=== PATIENT | female | born 1965 | race Caucasian/White ===

== ENCOUNTER 2017-06-20 07:58 | Emergency (ER) | payer MEDICARE, MEDICAID ==
[~2017-06-20] VITALS: Ht 157.5 cm; Wt 72.6 kg
[~2017-06-20 07:58] MED LIST: CLON0.5T3; DIPH50CA; IBUP800T24; IPRAAER6; OLAN10TA40; TOPI50TA53; ZIPR60CA7; ZOLP5TAB5
[2017-06-20 08:11] VITALS: BP 155/103
[2017-06-20] MEDS ORDERED: LORazepam 0.5 MG TAB PO ONE (08:30)
== END 2017-06-20 08:51 | disposition home or self-care (01) ==
LOC: ER 07:58 → EDBD 07:58 → ER 08:51
DX: F41.9 Anxiety disorder, unspecified (principal); J45.909 Unspecified asthma, uncomplicated; J20.9 Acute bronchitis, unspecified; F20.9 Schizophrenia, unspecified

== ENCOUNTER 2018-12-14 11:36 | Emergency (ER) | payer OTHER, MEDICAID ==
[~2018-12-14] VITALS: Ht 162.6 cm; Wt 86.2 kg
[~2018-12-14 11:36] MED LIST changes: +CLON0.5T10; -CLON0.5T3
[2018-12-14 11:44] VITALS: BP 124/69
== END 2018-12-14 14:36 | disposition left against medical advice (07) ==
LOC: EDBD 11:36 → ER 11:36
DX: F29 Unspecified psychosis not due to a substance or known physiological condition (principal); Z53.21 Procedure and treatment not carried out due to patient leaving prior to being seen by health care provider

== ENCOUNTER 2022-01-06 09:51 | Emergency (ER) | payer OTHER, MEDICAID ==
[~2022-01-06] VITALS: Ht 157.5 cm; Wt 90.7 kg
[~2022-01-06 09:51] MED LIST changes: -DIPH50CA; +DIPH50CA19; -IBUP800T24; +IBUP800T27
[2022-01-06 09:54] VITALS: BP 134/77
== END 2022-01-06 10:21 | disposition left against medical advice (07) ==
LOC: ER 09:51
DX: R05.9 Cough, unspecified (principal); Z53.21 Procedure and treatment not carried out due to patient leaving prior to being seen by health care provider

== ENCOUNTER 2023-06-09 08:20 | Emergency (ER) | payer OTHER, MEDICAID ==
[~2023-06-09] VITALS: Ht 157.5 cm; Wt 93.0 kg
[~2023-06-09 08:20] MED LIST changes: -CLON0.5T10; +CLON0.5T4; -DIPH50CA19; +DIPH50CA30; +IBUP-1456; -IBUP800T27
[2023-06-09 08:50] VITALS: BP 108/82; TEMP 97.5
[2023-06-09 08:55] VITALS: PULSE 81; RESP 16; O2SAT 98
[2023-06-09] MEDS ORDERED: IBUP-1456 PO ×2 (09:02→09:15)
[2023-06-09] MEDS ORDERED: AUG875T PO ×2 (09:02→09:15)
== END 2023-06-09 09:21 | disposition home or self-care (01) ==
LOC: ER 08:20
DX: H66.92 Otitis media, unspecified, left ear (principal); J45.909 Unspecified asthma, uncomplicated; Z90.89 Acquired absence of other organs; Z79.1 Long term (current) use of non-steroidal anti-inflammatories (NSAID); Z79.2 Long term (current) use of antibiotics; Z79.899 Other long term (current) drug therapy

== ENCOUNTER 2023-06-14 06:20 | Emergency (ER) | payer OTHER, MEDICAID ==
[~2023-06-14] VITALS: Ht 157.5 cm; Wt 91.0 kg
[~2023-06-14 06:20] MED LIST changes: +AUG875T PO; +IBUP-1456 PO
[2023-06-14 07:41] VITALS: BP 136/83; PULSE 88; RESP 20; TEMP 98.1; O2SAT 97
== END 2023-06-14 07:41 | disposition home or self-care (01) ==
LOC: ER 06:20
DX: F20.9 Schizophrenia, unspecified (principal); F41.9 Anxiety disorder, unspecified; F32.9 Major depressive disorder, single episode, unspecified; J45.909 Unspecified asthma, uncomplicated; Z90.89 Acquired absence of other organs; Z79.1 Long term (current) use of non-steroidal anti-inflammatories (NSAID); Z79.899 Other long term (current) drug therapy

== ENCOUNTER 2024-02-10 12:22 | Emergency (ER) | payer OTHER, MEDICAID ==
[~2024-02-10] VITALS: Ht 157.5 cm; Wt 86.6 kg
[2024-02-10 12:51] VITALS: BP 113/94; RESP 18; O2SAT 96
[2024-02-10 12:53] VITALS: PULSE 92
== END 2024-02-10 14:30 | disposition left against medical advice (07) ==
LOC: ER 12:22
DX: K52.9 Noninfective gastroenteritis and colitis, unspecified (principal); J45.909 Unspecified asthma, uncomplicated; F41.9 Anxiety disorder, unspecified; F32.A Depression, unspecified; F20.9 Schizophrenia, unspecified; R56.9 Unspecified convulsions; Z90.89 Acquired absence of other organs; Z59.00 Homelessness unspecified; Z79.899 Other long term (current) drug therapy
CPT/HCPCS: 93005

== ENCOUNTER 2024-03-26 05:57 | Emergency (ER) | payer MEDICARE, MEDICAID ==
[~2024-03-26] VITALS: Ht 157.5 cm; Wt 95.0 kg
[2024-03-26 07:37] LABS: Basophils # (auto) 0.1 10 ^3/uL (0-0.2); Basophils % (auto) 0.7 % (0.0-2.0); Eosinophils # (auto) 0.2 10 ^3/uL (0-0.8); Eosinophils % (auto) 2.6 % (0.0-7.0); Hematocrit 40.3 % (36.0-46.0); Hemoglobin 13.8 g/dL (12.2-16.2); Lymphocytes # (auto) 3.4 10 ^3/uL (0.4-5.4); Mean Corpuscular Hemoglobin 32.3 pg (28.0-32.0); Mean Corpuscular Hgb Conc. 34.3 g/dL (32.0-36.0); Mean Corpuscular Volume 94.2 fL (80.0-100.0); Monocytes # (auto) 0.4 10 ^3/uL (0-1.3); Monocytes % (auto) 4.6 % (0.0-12.0); Neutrophils # (auto) 3.7 10 ^3/uL (1.6-8.6); Neutrophils % (auto) 48.1 % (37.0-80.0); Nucleated Red Blood Cells % 0.1 %; Red Blood Cells 4.28 10^6/uL (4.0-5.20); Red Cell Distribution Width 13.8 % (11.8-14.3); White Blood Cell 7.8 10^3/uL (4.4-10.8)
[2024-03-26 07:48] LABS: Alanine Aminotransferase 51 U/L (7-40); Albumin 4.7 g/dL (3.2-4.8); Alkaline Phosphatase 105 U/L (46-116); Anion Gap 12 (5-15); Aspartate Aminotransferase 18 U/L (13-40); BUN/Creatinine Ratio 17.6 (10.0-20.0); Bilirubin, Total 0.2 mg/dL (0.2-1.0); Blood Urea Nitrogen 16 mg/dL (9-23); Calcium 9.7 mg/dL (8.7-10.4); Carbon Dioxide 19 mmol/L (20-30); Chloride 106 mmol/L (98-107); Glucose 106 mg/dL (74-106); Potassium 3.9 mmol/L (3.5-5.1); Sodium 137 mmol/L (136-145); Total Protein 7.1 g/dL (5.7-8.2)
[2024-03-26 08:31] VITALS: BP 124/85; PULSE 88; RESP 16; TEMP 98.2; O2SAT 98
[2024-03-26] MEDS ORDERED: DIVA-91 PO (08:49)
[2024-03-26 08:50] VITALS: PULSE 79
== END 2024-03-26 09:31 | disposition home or self-care (01) ==
LOC: EDBD 05:57 → ER 05:57
DX: F25.9 Schizoaffective disorder, unspecified (principal); F32.9 Major depressive disorder, single episode, unspecified; F41.9 Anxiety disorder, unspecified; J45.909 Unspecified asthma, uncomplicated; R21 Rash and other nonspecific skin eruption; Z79.899 Other long term (current) drug therapy
CPT/HCPCS: 36415; 80053; 84484; 85025; 93005

== ENCOUNTER 2024-07-06 08:22 | Inpatient (IN) | payer MEDICARE, MEDICAID ==
[~2024-07-06] VITALS: Ht 157.5 cm; Wt 89.7 kg
[~2024-07-06 08:22] MED LIST changes: +DIVA-91 PO
[2024-07-06 08:52] LABS: Urine Bacteria None Seen /hpf (None Seen)
[2024-07-06] MEDS: methylPREDNISolone SOD SUCC 125 MG/2 ML VL IV ONE (08:57)
[2024-07-06] MEDS: ALBUTEROL SULF 2.5 MG/0.5ML(0.5%) NEB SOLN NEB ONE (08:58)
[2024-07-06] MEDS: IPRATROPIUM BROM 0.5 MG/2.5ML INH SOL NEB ONE (08:58)
[2024-07-06 09:18] LABS: Basophils # (auto) 0.1 10 ^3/uL (0-0.2); Basophils % (auto) 0.7 % (0.0-2.0); Eosinophils # (auto) 0.2 10 ^3/uL (0-0.8); Eosinophils % (auto) 2.9 % (0.0-7.0); Hematocrit 40.7 % (36.0-46.0); Hemoglobin 13.4 g/dL (12.2-16.2); Lymphocytes # (auto) 2.6 10 ^3/uL (0.4-5.4); Lymphocytes % (auto) 33.6 % (10.0-50.0); Mean Corpuscular Hemoglobin 31.7 pg (28.0-32.0); Mean Corpuscular Hgb Conc. 32.9 g/dL (32.0-36.0); Mean Corpuscular Volume 96.2 fL (80.0-100.0); Monocytes # (auto) 0.3 10 ^3/uL (0-1.3); Monocytes % (auto) 4.1 % (0.0-12.0); Neutrophils # (auto) 4.6 10 ^3/uL (1.6-8.6); Neutrophils % (auto) 58.7 % (37.0-80.0); Nucleated Red Blood Cells % 0.1 %; Platelet Count (auto) 282 10^3/uL (140-450); Red Blood Cells 4.23 10^6/uL (4.0-5.20); Red Cell Distribution Width 13.5 % (11.8-14.3); White Blood Cell 7.8 10^3/uL (4.4-10.8)
[2024-07-06 09:26] LABS: Urine Blood 3+ /uL (Negative); Urine Clarity Turbid (Clear); Urine Mucus FEW (None Seen); Urine Protein, UAD 1+ (Negative); Urine Specific Gravity 1.024 (1.001-1.035); Urine Urobilinogen Normal (Negative); Urine WBC 104 /hpf (0 - 5); Urine pH 6.5 (5.0-9.0)
[2024-07-06 09:27] LABS: Urine Color Yellow (Yellow)
[2024-07-06 09:31] LABS: Chloride 108 mmol/L (98-107); Potassium 3.4 mmol/L (3.5-5.1); Sodium 140 mmol/L (136-145)
[2024-07-06 09:32] LABS: Anion Gap 8 (5-15); Carbon Dioxide 24 mmol/L (20-31)
[2024-07-06 09:33] LABS: Calcium 9.7 mg/dL (8.7-10.4)
[2024-07-06 09:37] LABS: BUN/Creatinine Ratio 15.3 (10.0-20.0); Blood Urea Nitrogen 13 mg/dL (9-23); Glucose 93 mg/dL (74-106)
[2024-07-06] MEDS: cefTRIAXone 1GM/50ML D5W 50 ML IV ONE (13:24)
[2024-07-06] MEDS: HYDROcodone-ACET 5/325MG TAB PO ONE (13:33)
[2024-07-06] MEDS ORDERED: HYDROmorphone HCL 2 MG/ML VL/or syr IV PRN (15:00)
[2024-07-06] MEDS ORDERED: ACETAMINOPHEN 325 MG TAB PO PRN (15:00)
[2024-07-06] MEDS ORDERED: DOCUSATE SOD 100 MG CAP PO PRN (15:00)
[2024-07-06] MEDS ORDERED: HYDROcodone-ACET 5/325MG TAB PO PRN (15:00)
[2024-07-06] MEDS ORDERED: ONDANSETRON HCL 4 MG/2 ML VIAL IV PRN (15:00)
[2024-07-06 17:41] VITALS: BP 127/89; PULSE 69; RESP 16; TEMP 97.8; O2SAT 98
[2024-07-06 17:55] VITALS: BP 127/89; PULSE 69; RESP 16; TEMP 91; O2SAT 98
[2024-07-06 20:00] VITALS: PULSE 80; RESP 18; O2SAT 95
[2024-07-06 21:00] VITALS: BP 135/85; PULSE 80; RESP 19; TEMP 97.9; O2SAT 95
[2024-07-06] MEDS: SODIUM CHLOR 0.9% PF (SALINE LOCK) 10ML VIAL/SYR IV SCH (21:48)
[2024-07-07 01:00] VITALS: BP 114/73; PULSE 87; RESP 19; TEMP 97.6; O2SAT 97
[2024-07-07 05:00] VITALS: BP 102/66; PULSE 74; RESP 19; TEMP 97.6; O2SAT 96
[2024-07-07 08:43] VITALS: BP 106/76; PULSE 74; RESP 19; TEMP 98; O2SAT 97
[2024-07-07 09:52] LABS: Basophils # (auto) 0 10 ^3/uL (0-0.2); Basophils % (auto) 0.8 % (0.0-2.0); Eosinophils # (auto) 0.3 10 ^3/uL (0-0.8); Eosinophils % (auto) 4.5 % (0.0-7.0); Hematocrit 39.3 % (36.0-46.0); Hemoglobin 12.9 g/dL (12.2-16.2); Lymphocytes # (auto) 2.5 10 ^3/uL (0.4-5.4); Lymphocytes % (auto) 43.4 % (10.0-50.0); Mean Corpuscular Hemoglobin 31.7 pg (28.0-32.0); Mean Corpuscular Hgb Conc. 32.9 g/dL (32.0-36.0); Mean Corpuscular Volume 96.4 fL (80.0-100.0); Monocytes # (auto) 0.3 10 ^3/uL (0-1.3); Monocytes % (auto) 4.8 % (0.0-12.0); Neutrophils # (auto) 2.7 10 ^3/uL (1.6-8.6); Neutrophils % (auto) 46.5 % (37.0-80.0); Nucleated Red Blood Cells % 0.1 %; Platelet Count (auto) 252 10^3/uL (140-450); Red Blood Cells 4.08 10^6/uL (4.0-5.20); Red Cell Distribution Width 13.5 % (11.8-14.3); White Blood Cell 5.7 10^3/uL (4.4-10.8)
[2024-07-07 09:56] LABS: Alanine Aminotransferase 10 U/L (7-40); Albumin 4.1 g/dL (3.2-4.8); Alkaline Phosphatase 84 U/L (46-116); Anion Gap 8 (5-15); Aspartate Aminotransferase < 8 U/L (13-40); BUN/Creatinine Ratio 18.1 (10.0-20.0); Bilirubin, Total 0.2 mg/dL (0.2-1.0); Blood Urea Nitrogen 15 mg/dL (9-23); Calcium 9.5 mg/dL (8.7-10.4); Carbon Dioxide 24 mmol/L (20-31); Chloride 110 mmol/L (98-107); Glucose 87 mg/dL (74-106); Potassium 4.3 mmol/L (3.5-5.1); Sodium 142 mmol/L (136-145); Total Protein 6.5 g/dL (5.7-8.2)
[2024-07-07] MEDS ORDERED: cefTRIAXone 1GM/50ML D5W 50 ML IV SCH (10:00)
[2024-07-07] MEDS: ENOXAPARIN SOD 40 MG/0.4 ML SYRINGE SC SCH (10:14)
[2024-07-07] MEDS: cefTRIAXone 1GM/50ML D5W 50 ML IV SCH (10:15)
[2024-07-07 13:00] VITALS: BP 110/74; PULSE 71; RESP 20; TEMP 97.9; O2SAT 100
[2024-07-07 17:00] VITALS: BP 125/77; PULSE 69; RESP 17; TEMP 97.9; O2SAT 97
[2024-07-07 21:00] VITALS: BP_SYST 106; BP_SYST 110; BP_DIAS 67; BP_DIAS 71; PULSE 53; PULSE 72; RESP 18; RESP 20; TEMP 97.5; TEMP 97.8; O2SAT 96; O2SAT 98
[2024-07-08 01:00] VITALS: BP 120/75; PULSE 74; RESP 20; TEMP 97.7; O2SAT 96
[2024-07-08 05:00] VITALS: BP 111/81; PULSE 74; RESP 20; TEMP 97.8; O2SAT 96
[2024-07-08 05:55] LABS: Hematocrit 38.5 % (36.0-46.0); Mean Corpuscular Hemoglobin 32.6 pg (28.0-32.0); Mean Corpuscular Hgb Conc. 33.9 g/dL (32.0-36.0); Mean Corpuscular Volume 96.4 fL (80.0-100.0); Platelet Count (auto) 246 10^3/uL (140-450); Red Blood Cells 3.99 10^6/uL (4.0-5.20); Red Cell Distribution Width 13.1 % (11.8-14.3); White Blood Cell 5.6 10^3/uL (4.4-10.8)
[2024-07-08 06:05] LABS: Band Neutrophils % (manual) 0; Basophils % (manual) 0 (0.0-2.0); Blast Cells 0; Metamyelocytes % 0; Myelocytes % 0; Promyelocytes % 0; Reactive Lymphocytes 0
[2024-07-08 06:08] LABS: Alanine Aminotransferase 11 U/L (7-40); Alkaline Phosphatase 80 U/L (46-116); Anion Gap 8 (5-15); Aspartate Aminotransferase < 8 U/L (13-40); BUN/Creatinine Ratio 18.5 (10.0-20.0); Bilirubin, Total 0.3 mg/dL (0.2-1.0); Blood Urea Nitrogen 15 mg/dL (9-23); Calcium 9.4 mg/dL (8.7-10.4); Carbon Dioxide 22 mmol/L (20-31); Chloride 112 mmol/L (98-107); Glucose 95 mg/dL (74-106); Sodium 142 mmol/L (136-145); Total Protein 6.3 g/dL (5.7-8.2)
[2024-07-08 08:12] LABS: Eosinophils % (manual) 5 (0-7); Lymphocytes % (manual) 57 (10.0-50.0); Monocytes % (manual) 10 (0-12); Platelet Estimate Adequate
[2024-07-08 09:00] VITALS: BP 130/83; PULSE 86; RESP 17; TEMP 97.7; O2SAT 98
[2024-07-08] MEDS ORDERED: BUPR-346 PO (09:29)
[2024-07-08] MEDS ORDERED: TOPI1CAP23 OR (09:29)
[2024-07-08] MEDS ORDERED: HYDR-3682 PO (09:30)
[2024-07-08] MEDS ORDERED: CARB200C8 PO (09:31)
[2024-07-08] MEDS ORDERED: DIVA250T12 PO (09:33)
[2024-07-08] MEDS ORDERED: QUET100T47 PO (09:34)
[2024-07-08 13:00] VITALS: BP 106/76; PULSE 79; RESP 15; TEMP 98; O2SAT 96
[2024-07-08] MEDS ORDERED: CIPR-173 PO (13:48)
[2024-07-08 16:37] VITALS: TEMP 36.7
== END 2024-07-08 17:10 | disposition home or self-care (01) | DRG 690 ==
LOC: ER 08:22 → OVERFLOW 15:00 → WEST WING 15:05
PROVIDERS: ADMIT Student in an Organized Health Care Education/Training Program; ATTEND Student in an Organized Health Care Education/Training Program
DX: N30.01 Acute cystitis with hematuria (principal); Z59.00 Homelessness unspecified; F20.9 Schizophrenia, unspecified; J45.909 Unspecified asthma, uncomplicated; Z79.899 Other long term (current) drug therapy
CPT/HCPCS: 36415; 80048; 80053; 81001; 85007; 85025; 85027; 87040; 87086; 87088; 87186; G0378

== ENCOUNTER 2024-09-30 11:09 | Emergency (ER) | payer MEDICARE, MEDICAID ==
[~2024-09-30] VITALS: Ht 157.5 cm; Wt 90.9 kg
[~2024-09-30 11:09] MED LIST changes: -AUG875T PO; +BUPR-346 PO; +CARB200C8 PO; +CIPR-173 PO; +DIVA250T12 PO; +HYDR-3682 PO; +QUET100T47 PO; +TOPI1CAP23 OR; -TOPI50TA53
--- NOTE | 2024-09-30 11:40 | ED.PDOC ---
Psychiatric HPI Comments 59y F who presents to the ED via EMS for chief complaint of anxiety. Pt states she was shoping at [employer] and states while in line, she thinks she heard a switch blade and turned around. Pt states she turned around and did not see anybody but states she suddenly felt weak and noticed pain to the R foot and heel and called EMS. Pt now in the ED, states she does have history of paranoid schizophrenia and states it might of her own paranoia. Pt otherwise denies any suicidal or homidical ideations. Pt otherwise denies any other symptoms at this time. 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 FARM MANAGER History Family History Family History: No family hx of DM, No family hx of Heart christiano, No family hx of HTN Social History Smoker: Non-Smoker Alcohol: Denies ETOH Use Drugs: Denies Drug Use Lives In: Homeless Constitutional: denies: chills, diaphoresis, fatigue, fever, malaise, sweats, weakness, others EENTM: denies: blurred vision, double vision, ear bleeding, ear discharge, ear drainage, ear pain, ear ringing, eye pain, eye redness, hearing loss, mouth pain, mouth swelling, nasal discharge, nose bleeding, nose congestion, nose pain, photophobia, tearing, throat pain, throat swelling, voice changes, others Respiratory: denies: cough, hemoptysis, orthopnea, SOB at rest, shortness of b reath, SOB with excertion, stridor, wheezing, others Cardiovascular: denies: chest pain, dizzy spells, diaphoresis, Dyspnea on exertion, edema, irregular heart beat, left arm pain, lightheadedness, palpitations, PND, syncope, others Gastrointestinal: denies: abdomen distended, abdominal pain, blood streaked bowels, constipated, diarrhea, dysphagia, difficulty swallowing, hematemesis, melena, nausea, poor appetite, poor fluid intake, rectal bleeding, rectal pain, vomiting, others Genitourinary: denies: abnormal vagina bleeding, burning, dyspareunia, dysuria, flank pain, frequency, hematuria, incontinence, pain, , vagina discharge, urgency, others Neurological: denies: dizziness, fainting, headache, left sided numbness, left sided weakness, numbness, paresthesia, pre-existing deficit, right sided numbness, right sided weakness, seizure, speech problems, tingling, tremors, weakness, others Musculoskeletal: reports: joint pain; denies: back pain, gout, joint swelling, muscle pain, muscle stiffness, neck pain, others Integumetry: denies: bruises, change in color, change in hair/nails, dryness, laceration, lesions, lumps, rash, wounds, others Allergic/Immunocompromised: denies: Difficulty Healing, Frequent Infections, Hives, Itching, others Hematologic/Lymphatic: denies: anemia, blood clots, easy bleeding, easy brui sing, swollen glands, others Endocrine: denies: excessive hunger, excessive sweating, excessive thirst, ex cessive urination, flushing, intolerance to cold, intolerance to heat, unexplained weight gain, unexplained weight loss, others Psychiatric: reports: anxiety, schizophrenia; denies: bipolar disorder, depression, hopeless, panic disorder, sleepless, suicidal, others All Other Systems: Reviewed and Negative Physical Exam General Appearance: Mild Distress HEENT: Normal ENT Inspection, Pharynx Normal, TMs Normal Neck: Full Range of Motion, Non-Tender, Normal, Normal Inspection Respiratory: Chest Non-Tender, Lungs Clear, No Accessory Muscle Use, No Respiratory Distress, Normal Breath Sounds Cardiovascular: No Edema, No JVD, No Murmur, No Gallop, Normal Peripheral Pulses, Regular Rate/Rhythm Breast Exam: Deferred Gastrointestinal: No Organomegaly, Non Tender, No Pulsatile Mass, Normal Bowel Sounds, Soft Genitalia: Deferred Pelvic: Deferred Rectal: Deferred Extremities: Other (mild tenderness plantar fascia right foot) Musculoskeletal : Apperance: Normal Neurologic: Alert, lead operator II-XII nml as Tested, No Motor Deficits, Normal Affect, Normal Mood, No Sensory Deficits Cerebellar Function: Normal Reflexes: Normal Skin: Dry, Normal Color, Warm Lymphatic: No Adenopathy Was a procedure done? Was a procedure done?: No Psych Differential Dx Psych. Differential Dx: Anxiety, Depression, Schizoprenia X-Ray, Labs, Meds, VS Vital Signs Date Time Temp Pulse Resp B/P (MAP) Pulse Ox O2 Delivery O2 Flow Rate FiO2 1/25/25 11:57 97.7 79 18 120/79 (93) 98 97.7 09/30/24 11:57 79 18 98 Room Air 0 09/30/24 11:09 Room Air* 0 21 09/30/24 11:09 Room Air* 0 21 09/30/24 11:09 97.6 88 14 129/90 (103) 98 Time of 1ST Reevaluation: 12:10 Reevaluation 1ST: Unchanged Time of 2ND Reevaluation: 12:40 Reevaluation 2ND: Improved Patient Education/Counseling: Diagnosis, Treatment Family Education/Counseling: No Family Present Departure 1 Departure Time of Disposition: 12:40 Impression: Primary Impression: History of schizophrenia Additional Impressions: Plantar fasciitis Right foot pain Disposition: 01 HOME / SELF CARE / HOMELESS Condition: Stable Additional Instructions: Follow up with your primary physician Return to the ED for any worsening symptoms or concerns Discharged With: Self Critical Care Note Critical Care Time?: No Stability Stability form required: No Heart Score Heart Score: Heart Score Response (Comments) Value History N/A 0 EKG N/A 0 Age N/A 0 Risk Factors N/A 0 Troponin N/A 0 Total 0 I personally scribed for HUDSON NOBLE MD ([email or web address]) on 09/30/24 at 11:40. Electronically submitted by Jessie Horton ([email or web address]). HUDSON NOBLE MD Sep 30, 2024 11:40
[2024-09-30 11:57] VITALS: BP 120/79; PULSE 79; RESP 18; TEMP 97.7; O2SAT 98
== END 2024-09-30 12:00 | disposition home or self-care (01) ==
LOC: ER 11:09 → EDBD 11:09 → ER 12:00
DX: M72.2 Plantar fascial fibromatosis (principal); M79.671 Pain in right foot; F41.9 Anxiety disorder, unspecified; J45.909 Unspecified asthma, uncomplicated; Z59.00 Homelessness unspecified; Z90.49 Acquired absence of other specified parts of digestive tract

== ENCOUNTER 2025-01-26 13:43 | Emergency (ER) | payer MEDICARE, MEDICAID ==
[~2025-01-26] VITALS: Ht 157.5 cm; Wt 83.0 kg
[2025-01-26 14:50] LABS: Urine Bacteria None Seen /hpf (None Seen)
--- NOTE | 2025-01-26 15:04 | ED.PDOC ---
General HPI Comments A 59 YEAR OLD FEMALE PRESENTS TO THE ED WITH COMPLAINT OF UTI SYMPTOMS. PATIENT STATES SHE HAS BEEN EXPERIENCING PAINFUL URINATION, URINARY URGENCY, AND URINARY FREQUENCY FOR THE PAST 1 WEEK. PATIENT DENIES HEMATURIA, FLANK PAIN, FEVER, CHILLS, SHORTNESS OF BREATH, CHEST PAIN, ABDOMINAL PAIN, NAUSEA, VOMITING, HEADACHE, OR OTHER COMPLAINTS. NO OTHER SYMPTOMS OR MODIFYING FACTORS AT THIS TIME. PATIENT IS ALERT, ORIENTED X 4, AND HAS STEADY GAIT. Chief Complaint: Urinary Time Seen by MD: 13:53 Primary Care Provider: KAYLYNN Reviewed notes: Nurses Notes, Medications, Allergies Allergies: Coded Allergies: NO KNOWN ALLERGIES (Unverified , 09/16/14) Home Meds Active Scripts Phenazopyridine HCl (Phenazopyridine Hydrochlo) 200 Mg Tab, 200 MG PO TID, #6 TAB Prov:JET CAPUTO 01/26/25 Ciprofloxacin Hcl (Cipro) 500 Mg Tab, 1 TAB PO BID, #20 TAB Prov:JET CAPUTO 01/26/25 Ciprofloxacin Hcl (Cipro) 500 Mg Tab, 1 TAB PO BID for 5 Days, #10 TAB 0 Refills Prov:SAVAGE PHAM MD 07/08/24 Divalproex Sodium (Depakote) 500 Mg Tab, 1 TAB PO BID, #14 TAB 1 Refill Prov:RAJINDER GONZALES MD 03/26/24 Ibuprofen (Ibuprofen) 800 Mg Tab, 1 TAB PO TID, #30 TAB Prov:JET CAPUTO 06/09/23 Reported Medications Quetiapine Fumerate (QUETIAPINE FUMARATE) 100 Mg Tab, 100 MG PO DAILY for 30 Days, MG 07/08/24 Divalproex Sodium (Divalproex Sodium) 250 Mg Tab, 250 MG PO BID for 30 Days, MG 07/08/24 Carbamazepine (CARBAMAZEPINE ER) 200 Mg Cap, 200 MG PO TID, CAP 07/08/24 Hydroxyzine Hcl (Hydroxyzine Hcl) 25 Mg Tab, 25 MG PO DAILY for 30 Days, MG 07/08/24 Bupropion Hcl (Bupropion Hcl) 100 Mg Tab, 300 MG PO DAILY for 30 Days, MG 07/08/24 Topiramate (TROKENDI XR) 100 Mg Cap, 100 MG OR BID, CAP 07/08/24 Clonazepam (Clonazepam) 0.5 Mg Tab, #60 09/16/14 Ziprasidone Hcl (ZIPRASIDONE HCL) 60 Mg Cap, #60 09/16/14 Zolpidem Tartrate (Zolpidem Tartrate) 5 Mg Tab, #30 09/16/14 Ibuprofen (Ibuprofen) 800 Mg Tab, #90 09/16/14 Ipratropium-Albuterol (COMBIVENT RESPIMAT) Respimat Aer, #4 09/16/14 Olanzapine (OLANZAPINE ODT) 10 Mg Tab, #30 09/16/14 Diphenhydramine Hcl (Diphenhydramine Hcl) 50 Mg Cap, #30 09/16/14 Information Source: Patient Mode of Arrival: Ambulatory Severity: Mild, Moderate Inability to void: None Timing: Days Duration: Since onset, Days Prehospital treatment: None Onset: Spontaneous Symptoms: Dysuria, Frequency, Urgency History of: None Location: Suprapubic, None Modifying factors: None associated signs and symptoms: Dysuria, Frequency, Urgency Past Medical History PAST MEDICAL HISTORY: Anxiety, Asthma, Depression, Schizophrenia, Seizures Surgical History: Tonsillectomy 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 History Family History Family History: No family hx of DM, No family hx of Heart christiano, No family hx of HTN Social History Smoker: Non-Smoker Alcohol: Denies ETOH Use Drugs: Denies Drug Use Lives In: Homeless Constitutional: denies: chills, diaphoresis, fatigue, fever, malaise, sweats, weakness, others EENTM: denies: blurred vision, double vision, ear bleeding, ear discharge, ear drainage, ear pain, ear ringing, eye pain, eye redness, hearing loss, mouth pain, mouth swelling, nasal discharge, nose bleeding, nose congestion, nose pain, photophobia, tearing, throat pain, throat swelling, voice changes, others Respiratory: denies: cough, hemoptysis, orthopnea, SOB at rest, shortness of breath, SOB with excertion, stridor, wheezing, others Cardiovascular: denies: chest pain, dizzy spells, diaphoresis, Dyspnea on exertion, edema, irregular heart beat, left arm pain, lightheadedness, palpitations, PND, syncope, others Gastrointestinal: denies: abdomen distended, abdominal pain, blood streaked bowels, constipated, diarrhea, dysphagia, difficulty swallowing, hematemesis, melena, nausea, poor appetite, poor fluid intake, rectal bleeding, rectal pain, vomiting, others Genitourinary: reports: burning, dysuria, frequency, urgency; denies: abnormal vagina bleeding, dyspareunia, flank pain, hematuria, incontinence, pain, , vagina discharge, others Neurological: denies: dizziness, fainting, headache, left sided numbness, left sided weakness, numbness, paresthesia, pre-existing deficit, right sided numbness, right sided weakness, seizure, speech problems, tingling, tremors, weakness, others Musculoskeletal: denies: back pain, gout, joint pain, joint swelling, muscle pain, muscle stiffness, neck pain, others Integumetry: denies: bruises, change in color, change in hair/nails, dryness, laceration, lesions, lumps, rash, wounds, others Allergic/Immunocompromised: denies: Difficulty Healing, Frequent Infections, Hives, Itching, others Hematologic/Lymphatic: denies: anemia, blood clots, easy bleeding, easy bruisin g, swollen glands, others Endocrine: denies: excessive hunger, excessive sweating, excessive thirst, excessive urination, flushing, intolerance to cold, intolerance to heat, unexplained weight gain, unexplained weight loss, others Psychiatric: denies: anxiety, bipolar disorder, depression, hopeless, panic disorder, schizophrenia, sleepless, suicidal, others All Other Systems: Reviewed and Negative Physical Exam General Appearance: No Apparent Distress, Obese HEENT: Normal ENT Inspection, PERRL/EOMI, Pharynx Normal, TMs Normal Neck: Full Range of Motion, Non-Tender, Normal, Normal Inspection Respiratory: Chest Non-Tender, Lungs Clear, No Accessory Muscle Use, No Respiratory Distress, Normal Breath Sounds Cardiovascular: No Edema, No JVD, No Murmur, No Gallop, Normal Peripheral Pulses, Regular Rate/Rhythm Breast Exam: Deferred Gastrointestinal: No Organomegaly, Non Tender, No Pulsatile Mass, Normal Bowel Sounds, Soft, Suprapubic (PRESSURE, NO GUARDING AND REBOUND TENDERNESS. ) Genitalia: Deferred Pelvic: Normal External Exam, Tender Uterus Rectal: Deferred Extremities: No calf tenderness, Normal capillary refill, Normal inspection, Normal range of motion, Non-tender, No pedal edema Musculoskeletal : Apperance: Normal Neurologic: Alert, supervisor post wave II-XII nml as Tested, No Motor Deficits, Normal Affect, Normal Mood, No Sensory Deficits Cerebellar Function: Normal Reflexes: Normal Skin: Dry, Normal Color, Warm Peripheral Pulses: 2+ carotid (R), 2+ carotid (L) Lymphatic: No Adenopathy Was a procedure done? Was a procedure done?: No Differential Diagnosis Kidney stone (Female): N/A Kidney stone (Male): N/A Penile/Scrotal: N/A Urinary Problem (Male): N/A Urinary Problem (Female): Pyelonephritis, Urolithiasis, UTI, Vaginitis X-Ray, Labs, Meds, VS Vital Signs Date Time Temp Pulse Resp B/P (MAP) Pulse Ox O2 Delivery O2 Flow Rate FiO2 01/26/25 15:24 77 01/26/25 15:14 97.8 77 17 133/76 (95) 99 97.8 01/26/25 14:22 97.3 84 18 117/78 (91) 95 97.3 Lab Test 01/26/25 14:36 Range/Units Urine Color Yellow Yellow Urine Clarity Clear Clear Urine pH 5.5 5.0-9.0 Urine Specific Merlin 1.027 1.001-1.035 Urine Protein Trace H Negative Urine Ketones Trace Negative Urine Blood Negative Negative /uL Urine Nitrite Negative Negative Urine Bilirubin Negative Negative Urine Urobilinogen Normal Negative mg/dL Urine Leukocyte Esterase 2+ Negative /uL Urine RBC 1 0 - 4 /hpf Urine Microscopic WBC 18 H 0-5 /HPF Urine Squamous Epithelial Cells Few <5 /hpf Urine Bacteria None seen None Seen /hpf Urine Mucus Few None Seen Urine Glucose Normal Normal mg/dL X-Ray, Labs, Meds, VS Comment EXTERNAL MEDICAL RECORDS REVIEWED: [NONE] INDEPENDENT HISTORIANS: [NONE] SOCIAL DETERMINANTS OF HEALTH: [NONE] LABS ORDERED: UA REVIEWED AND INTERPRETED RESULTS: LEUKO 2+ IMAGING ORDERED: NONE TREATMENTS ORDERED: NONE PROCEDURES PERFORMED: NONE CRITICAL CARE TIME: NONE I HAVE DISCUSSED THE PATIENT WITH THE ATTENDING PHYSICIAN DR. WEISS AND HE AGREES WITH THE PATIENT'S PLAN OF CARE AND DISPOSITION. BASED ON HISTORY OF PRESENT ILLNESS, AND PHYSICAL EXAM, PATIENT WILL BE DISCHARGED HOME. DISCUSSED PLAN FOR DISCHARGE HOME WITH RX [CIPRO 500MG AND PYRIDIUM]. MEDICATION WARNINGS GIVEN. SHARED DECISION MAKING: PATIENT INSTRUCTED TO FOLLOW UP WITH PRIMARY CARE PROVIDER IN 1-2 DAYS FOR RE-EVALUATION OF SYMPTOMS. PATIENT VERBALIZES UNDERSTANDING TO RETURN TO ED FOR NEW OR WORSENING SYMPTOMS OR IF FOLLOW UP WITH PCP CANNOT BE OBTAINED. PATIENT FEELS COMFORTABLE GOING HOME AT THIS TIME. ALL QUESTIONS ADDRESSED AT TIME OF DISCHARGE. Time of 1ST Reevaluation: 16:01 Reevaluation 1ST: Improved Patient Education/Counseling: Diagnosis, Treatment, Need For Follow Up Family Education/Counseling: Diagnosis, Treatment, Need For Follow Up Medical Screening: No EMC Exist At This Time Departure 1 Departure Time of Disposition: 16:01 Impression: Primary Impression: Acute UTI (urinary tract infection) Disposition: 01 HOME / SELF CARE / HOMELESS Condition: Stable Additional Instructions: FOLLOW-UP WITH PCP IN 1 TO 2 DAYS. TAKE MEDICATIONS PRESCRIBED. RETURN TO ED FOR ANY NEW OR WORSENING SYMPTOMS. e-Prescriptions Phenazopyridine HCl (Phenazopyridine Hydrochlo) 200 Mg Tab 200 MG PO TID, #6 TAB Prov: JET CAPUTO 01/26/25 Ciprofloxacin Hcl (Cipro) 500 Mg Tab 1 TAB PO BID, #20 TAB Prov: JET CAPUTO 01/26/25 Discharged With: Self Critical Care Note Critical Care Time?: No Stability Stability form required: No I personally scribed for JET CAPUTO ([email or web address]) on 01/26/25 at 15:04. Electronically submitted by Joel Luna ([email or web address]). I personally scribed for JET CAPUTO ([email or web address]) on 01/26/25 at 15:23. Electronically submitted by Joel Luna ([employer]). I personally scribed for JET CAPUTO ([email or web address]) on 01/26/25 at 15:59. Electronically submitted by Joel Luna ([email or web address]). JET CAPUTO January 26, 2025 15:04
[2025-01-26 15:08] LABS: Urine Blood Negative /uL (Negative); Urine Clarity Clear (Clear); Urine Color Yellow (Yellow); Urine Mucus FEW (None Seen); Urine Protein, UAD TRACE (Negative); Urine Specific Gravity 1.027 (1.001-1.035); Urine Squamous Epithelial Cell FEW /hpf (<5); Urine Urobilinogen Normal (Negative); Urine WBC 18 /HPF (0-5); Urine pH 5.5 (5.0-9.0)
[2025-01-26 15:14] VITALS: BP 133/76; RESP 17; TEMP 97.8; O2SAT 99
[2025-01-26 15:24] VITALS: PULSE 77
[2025-01-26] MEDS ORDERED: CIPR-173 PO (15:59)
[2025-01-26] MEDS ORDERED: PHEN-922 PO (15:59)
== END 2025-01-26 16:08 | disposition home or self-care (01) ==
LOC: ER 13:43
DX: N39.0 Urinary tract infection, site not specified (principal); F41.9 Anxiety disorder, unspecified; F32.A Depression, unspecified; F20.9 Schizophrenia, unspecified; J45.909 Unspecified asthma, uncomplicated; Z90.89 Acquired absence of other organs; Z59.00 Homelessness unspecified; Z79.1 Long term (current) use of non-steroidal anti-inflammatories (NSAID); Z79.899 Other long term (current) drug therapy
CPT/HCPCS: 81001

== ENCOUNTER 2025-02-03 09:50 | Emergency (ER) | payer MEDICARE, MEDICAID ==
[~2025-02-03] VITALS: Ht 157.5 cm; Wt 83.1 kg
[~2025-02-03 09:50] MED LIST changes: +PHEN-922 PO
[2025-02-03 09:59] VITALS: BP 138/85; PULSE 94; RESP 18; TEMP 98.9; O2SAT 96
--- NOTE | 2025-02-03 10:37 | ED.PDOC ---
History of Present Illness HPI Comments 59y F who presents to the ED for chief complaint of abnormal labs. Pt states she received lab slip from PCP telling her to get basic labs with noted check of her Depakote and A1C levels. Pt states she came to the ED to get her labs drawn with a [facility] order form. Pt otherwise denies any other symptoms. Chief Complaint: Abnormal LAB's Time Seen by MD: 10:36 Primary Care Provider: KAYLYNN Reviewed Notes: Medications, Allergies Allergies: Coded Allergies: NO KNOWN ALLERGIES (Unverified , 09/16/14) Home Meds Active Scripts Phenazopyridine HCl (Phenazopyridine Hydrochlo) 200 Mg Tab, 200 MG PO TID, #6 TAB Prov:JET CAPUTO 01/26/25 Ciprofloxacin Hcl (Cipro) 500 Mg Tab, 1 TAB PO BID, #20 TAB Prov:JET CAPUTO 01/26/25 Ciprofloxacin Hcl (Cipro) 500 Mg Tab, 1 TAB PO BID for 5 Days, #10 TAB 0 Refills Prov:SAVAGE PHAM MD 07/08/24 Divalproex Sodium (Depakote) 500 Mg Tab, 1 TAB PO BID, #14 TAB 1 Refill Prov:RAJINDER GONZALES MD 03/26/24 Ibuprofen (Ibuprofen) 800 Mg Tab, 1 TAB PO TID, #30 TAB Prov:JET CAPUTO 06/09/23 Reported Medications Quetiapine Fumerate (QUETIAPINE FUMARATE) 100 Mg Tab, 100 MG PO DAILY for 30 Days, MG 07/08/24 Divalproex Sodium (Divalproex Sodium) 250 Mg Tab, 250 MG PO BID for 30 Days, MG 07/08/24 Carbamazepine (CARBAMAZEPINE ER) 200 Mg Cap, 200 MG PO TID, CAP 07/08/24 Hydroxyzine Hcl (Hydroxyzine Hcl) 25 Mg Tab, 25 MG PO DAILY for 30 Days, MG 07/08/24 Bupropion Hcl (Bupropion Hcl) 100 Mg Tab, 300 MG PO DAILY for 30 Days, MG 07/08/24 Topiramate (TROKENDI XR) 100 Mg Cap, 100 MG OR BID, CAP 07/08/24 Clonazepam (Clonazepam) 0.5 Mg Tab, #60 09/16/14 Ziprasidone Hcl (ZIPRASIDONE HCL) 60 Mg Cap, #60 09/16/14 Zolpidem Tartrate (Zolpidem Tartrate) 5 Mg Tab, #30 09/16/14 Ibuprofen (Ibuprofen) 800 Mg Tab, #90 09/16/14 Ipratropium-Albuterol (COMBIVENT RESPIMAT) Respimat Aer, #4 09/16/14 Olanzapine (OLANZAPINE ODT) 10 Mg Tab, #30 09/16/14 Diphenhydramine Hcl (Diphenhydramine Hcl) 50 Mg Cap, #30 09/16/14 Information Source: Patient Past Medical History PAST MEDICAL HISTORY: Anxiety, Asthma, Depression, Schizophrenia, Seizures Surgical History: Tonsillectomy 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 SOLAR PHOTOVOLTAIC CREW LEAD History Family History Family History: No family hx of DM, No family hx of Heart christiano, No family hx of HTN Social History Smoker: Non-Smoker Alcohol: Denies ETOH Use Drugs: Denies Drug Use Lives In: Homeless Constitutional: denies: chills, diaphoresis, fatigue, fever, malaise, sweats, weakness, others EENTM: denies: blurred vision, double vision, ear bleeding, ear discharge, ear drainage, ear pain, ear ringing, eye pain, eye redness, hearing loss, mouth pain, mouth swelling, nasal discharge, nose bleeding, nose congestion, nose pain, photophobia, tearing, throat pain, throat swelling, voice changes, others Respiratory: denies: cough, hemoptysis, orthopnea, SOB at rest, shortness of breath, SOB with excertion, stridor, wheezing, others Cardiovascular: denies: chest pain, dizzy spells, diaphoresis, Dyspnea on exertion, edema, irregular heart beat, left arm pain, lightheadedness, palpitations, PND, syncope, others Gastrointestinal: denies: abdomen distended, abdominal pain, blood streaked bowels, constipated, diarrhea, dysphagia, difficulty swallowing, hematemesis, melena, nausea, poor appetite, poor fluid intake, rectal bleeding, rectal pain, vomiting, others Genitourinary: denies: abnormal vagina bleeding, burning, dyspareunia, dysuria, flank pain, frequency, hematuria, incontinence, pain, , vagina discharge, urgency, others Neurological: denies: dizziness, fainting, headache, left sided numbness, left sided weakness, numbness, paresthesia, pre-existing deficit, right sided numbness, right sided weakness, seizure, speech problems, tingling, tremors, weakness, others Musculoskeletal: denies: back pain, gout, joint pain, joint swelling, muscle pain, muscle stiffness, neck pain, others Integumetry: denies: bruises, change in color, change in hair/nails, dryness, laceration, lesions, lumps, rash, wounds, others Allergic/Immunocompromised: denies: Difficulty Healing, Frequent Infections, Hives, Itching, others Hematologic/Lymphatic: denies: anemia, blood clots, easy bleeding, easy bruising, swollen glands, others Endocrine: denies: excessive hunger, excessive sweating, excessive thirst, excessive urination, flushing, intolerance to cold, intolerance to heat, unexplained weight gain, unexplained weight loss, others Psychiatric: denies: anxiety, bipolar disorder, depression, hopeless, panic disorder, schizophrenia, sleepless, suicidal, others All Other Systems: Reviewed and Negative Physical Exam General Appearance: No Apparent Distress, Normal HEENT: Normal ENT Inspection, Pharynx Normal, TMs Normal Neck: Full Range of Motion, Non-Tender, Normal, Normal Inspection Respiratory: Chest Non-Tender, Lungs Clear, No Accessory Muscle Use, No Respiratory Distress, Normal Breath Sounds Cardiovascular: No Edema, No JVD, No Murmur, No Gallop, Normal Peripheral Pulses, Regular Rate/Rhythm Breast Exam: Deferred Gastrointestinal: No Organomegaly, Non Tender, No Pulsatile Mass, Normal Bowel Sounds, Soft Genitalia: Deferred Pelvic: Deferred Rectal: Deferred Extremities: No calf tenderness, Normal capillary refill, Normal inspection, Normal range of motion, Non-tender, No pedal edema Musculoskeletal : Apperance: Normal Neurologic: Alert, ski patrol director II-XII nml as Tested, No Motor Deficits, Normal Affect, Normal Mood, No Sensory Deficits Cerebellar Function: Normal Reflexes: Normal Skin: Dry, Normal Color, Warm Lymphatic: No Adenopathy Was a procedure done? Was a procedure done?: No Differential Dx Considerations may include: request for labs Time of 1ST Reevaluation: 11:00 Reevaluation 1ST: Unchanged Patient Education/Counseling: Diagnosis, Treatment Family Education/Counseling: No Family Present Comments pt has a lab slip to [facility]. i redirected her to where her doctor ordered the lab to be drawn Departure 1 Departure Time of Disposition: 10:39 Impression: Primary Impression: Laboratory test requested Disposition: HOME / SELF CARE / HOMELESS Condition: Good Discharged With: Self Critical Care Note Critical Care Time?: No Stability Stability form required: No Heart Score Heart Score: Heart Score Response (Comments) Value History N/A 0 EKG N/A 0 Age N/A 0 Risk Factors N/A 0 Troponin N/A 0 Total 0 I personally scribed for PJ NEGRETE MD ([facility]) on 02/03/25 at 10:37. Electronically submitted by Jessie Horton ([email or web address]). PJ NEGRETE MD February 03, 2025 10:37
== END 2025-02-03 14:10 | disposition home or self-care (01) ==
LOC: ER 09:50
DX: R79.9 Abnormal finding of blood chemistry, unspecified (principal); F41.9 Anxiety disorder, unspecified; F20.9 Schizophrenia, unspecified; F32.A Depression, unspecified; J45.909 Unspecified asthma, uncomplicated; Z90.89 Acquired absence of other organs; Z79.899 Other long term (current) drug therapy